=== PATIENT | female | born 1945 | race Caucasian/White ===

== ENCOUNTER 2017-08-06 12:40 | Emergency (ER) | payer MEDICARE, BC ==
--- OUTSIDE RECORDS SUMMARY | 2017-08-06 13:20 | XMS REPORT ---
:1945 External Reference #:[id number] Author Organization [facility] Address [address] [place] [address] Phone [phone] Care Team Providers Name Role Phone Antonietta Pradhan MD Primary Care Physician Unavailable Payers Type Date Identification Numbers Payment Provider Subscriber Medicare Primary Policy Number: [id number] Medicare-[facility] Jonathan Burgess PayID: [id number] [address] [place] [address] Commercial Policy Number: [id number] [facility] Jonathan Burgess PayID: [id number] [address] [place] [address] Medigap Part B Policy Number: [id number] Medicare-[facility] Mya Palma PayID: [id number] [address] [place] [address] Commercial PayID: [id number] Roseline Palma [address] [place] [address] Problems Description No Information Family History Date Family Member(s) Problem(s) Comments General Cancer General No Current Problems Mother Cancer Social History Type Date Description Comments Occupation Retired Cigarette Use Former Cigarette Smoker 1 Pack Daily x 35 yrs, quit age 57 Cigars Never Smoked Cigars Pipe Never Smoked A Pipe Smokeless Tobacco Never Used Smokeless Tobacco ETOH Use Currently rarely consumes alcohol Smoking Patient is a former smoker Allergies, Adverse Reactions, Alerts Date Description Reaction Status Severity Comments 07/24/2017 Amoxicillin Urticaria active 07/24/2017 Contrast Dye Urticaria active Medications Medication Date Status Form Strength Qnty SIG Indications Ordering Provider Levothyroxine / Active Tablets 150mcg Jander, Sodium 0000 Antonietta PATEL Simvastatin 00/ Active Tablets 10mg Jander, 0000 Antonietta PATEL Losartan / Active Tablets 25mg Take 3 Unknown Potassium 0000 Tablets By Mouth Every Day Glipizide ER / Active Tablets ER 10mg Take 1 Unknown 0000 24HR Tablet By Mouth Two Times Daily Metformin HCL / Active Tablets 500mg , Antonietta PATEL Lantus Solostar / Active Solution 100Unit/ML Administer Unknown 0000 Pen-Inject 18 Units Under The Skin At Bedtime Restasis / Active Emulsion 0.05% Instill 1 Unknown 0000 Drop In Each Eye Two Times Daily Aspirin 81 Low / Active Chewtabs 81mg daily , Dose 0000 Antonietta PATEL Vital Signs Date Vital Result Comment 07/24/2017 Weight 160.00 lb Weight in kg's 72.576 Height 64 inches 5'4" Height in cm's 162.6 cm BMI (Body Mass Index) 27.5 kg/m2 Results Description No Information Procedures Description No Information Encounters Type Date Location Provider CPT E/M Dx Office Visit 07/24/2017 [place] 04/21/07 [place], [address] H68.002 9:15a Plan of Care Future Appointment(s):07/25/2017 1:15 pm - Branden Aldana MA, CCC-A at [place],After 04/21/803 - [place] MDH68.002 Unspecified Eustachian salpingitis, left ear
[2017-08-06] MEDS ORDERED: NS 0.9% 1000 ML* 2,000 ML IV ONE (15:12)
[2017-08-06 16:17] LABS: ABS Basophils 0.1 10^3/ul (0-0.2); ABS Eosinophils 0.1 10^3/ul (0-0.6); ABS Lymphocytes 1.4 10^3/ul (1.0-4.8); ABS Monocytes 0.4 10^3/ul (0-0.8); ABS Nucleated RBC 0 10^3/ul; Eosinophil % 0.7 % (0-6); Hematocrit 42 % (35-47); Hemoglobin 13.9 g/dl (12.0-16.0); Mean Corpuscular HGB Conc 33 g/dl (31-36); Mean Corpuscular Hemoglobin 32 pg (27-31); Mean Corpuscular Volume 95 fL (80-97); Mean Platelet Volume 9.5 um3 (7.4-10.4); Nucleated Red Blood Cells % 0; Platelet Count 281 10^3/ul (150-450); Red Cell Distribution Width 14 % (10.5-15)
[2017-08-06 16:30] LABS: INR 0.94 (0.77-1.02)
[2017-08-06 16:34] LABS: EGFR Non-African American 44.1 (>60)
[2017-08-06 17:13] LABS: Urine Appearance Clear; Urine Blood 2+ (Negative); Urine Color Straw; Urine Ketones Trace (Negative); Urine Protein Negative (Negative); Urine Specific Gravity 1.006 (1.010-1.030); Urine Urobilinogen Negative (Negative)
--- NOTE | 2017-08-06 17:38 | RAD ---
INDICATION: Right lower quadrant pain. COMPARISON: Correlation is made with a prior CT of the abdomen and pelvis from August 04, 2017. TECHNIQUE: Multiple real-time images of the right lower quadrant were obtained using a graded compression technique. FINDINGS: No free intraperitoneal fluid or localized fluid collections are seen. The appendix was not visualized limiting the study. IMPRESSION: THE APPENDIX WAS NOT VISUALIZED LIMITING THE STUDY.
--- NOTE | 2017-08-06 17:43 | RAD ---
INDICATION: Right flank abdominal pain. COMPARISON: Comparison is made with a prior CT of the abdomen and pelvis from August 04, 2017. TECHNIQUE: Multiple real-time images of the kidneys were obtained. FINDINGS: The kidneys are normal in size shape and echogenicity. The right kidney measured 10.2 x 5.3 x 5.4 cm and the left kidney measured 10.3 x 5.9 x 5.3 cm. There is mild right hydronephrosis. There is a diminished right ureterovesical jet relative to the left side. There is a small left peripelvic cyst measuring 1.0 x 1.1 x 1.0 cm. There is also a small nonspecific echogenic focus in the lower pole of the left kidney measuring 0.5 x 0.5 x 0.5 cm. IMPRESSION: MILD RIGHT HYDRONEPHROSIS AND DIMINISHED RIGHT URETEROVESICAL JET SUSPICIOUS FOR A RIGHT URETERAL CALCULUS. CONSIDER CT IMAGING FOR FURTHER EVALUATION.
[2017-08-06] MEDS ORDERED: Ketorolac INJ* 30 MG/ML 1 ML VIAL IV ONE (18:12)
[2017-08-06] MEDS ORDERED: Tamsulosin CAP* 0.4 MG PO ONE (18:12)
--- NOTE | 2017-08-06 19:46 | ED ---
Tangela Stubbs Gabriel, scribed for Ozzy Avila MD on 08/06/17 at 1501 . Back Pain - HPI Summary HPI Summary: This patient is a 71 year old F presenting to [facility] with a chief complaint of right sided flank pain that began at 1030 this morning. The patient rates the pain 8/10 in severity. Symptoms alleviated by OTC pain medications. Patient reports nausea secondary to pain. Patient denies dysuria. Pt had a CT yesterday that showed 2 kidney stones. - History of Current Complaint Chief Complaint: EDFlankPain Stated Complaint: FLANK PAIN Time Seen by Provider: 08/06/17 14:53 Hx Obtained From: Patient Onset/Duration: Still Present Onset/Duration: Still Present Timing: Constant Severity Initially: Severe Severity Currently: Severe Pain Intensity: 8 Pain Scale Used: 0-10 Numeric Associated Signs And Symptoms: Positive: Other - right sided flank pain and nausea - Allergies/Home Medications Allergies/Adverse Reactions: Allergies Allergy/AdvReac Type Severity Reaction Status Date / Time amoxicillin Allergy Unknown Verified 08/06/17 16:[address] dye Allergy Unknown Uncoded 05/09/17 15:11 Reaction Details Home Medications: Home Medications Cyclosporine 0.05% OPHTH (NF) [Restasis 0.05% OPHTH] 0.05 % BOTH EYES BID [History Confirmed 08/06/17] Insulin GLARGINE(*) [Lantus(*)] 22 units SUBCUT DAILY 08/06/17 [History Confirmed 08/06/17] Levothyroxine TAB* [Synthroid TAB*] 75 mcg PO SUWE 08/06/17 [History Confirmed 08/06/17] Levothyroxine TAB* [Synthroid TAB*] 150 mcg PO MOTUTHFRSA 08/06/17 [History Confirmed 08/06/17] Losartan TAB* [Cozaar TAB*] 25 mg PO TID 08/06/17 [History Confirmed 08/06/17] Simvastatin TAB(NF) [Zocor(NF)] 10 mg PO DAILY 08/06/17 [History Confirmed 08/06] glipiZIDE [Glipizide ER] 10 mg PO BID 08/06/17 [History Confirmed 08/06/17] metFORMIN* [Glucophage 500 MG TAB *] 1,000 mg PO BID 08/06/17 [History Confirmed 08/06/17] PMH/Surg Hx/FS Hx/Imm Hx Endocrine/Hematology History: Denies: Hx Sickle Cell Disease, Hx Thyroid Disease Respiratory History: Denies: Hx Chronic Obstructive Pulmonary Disease (COPD), Hx Cystic Fibrosis History: Reports: Hx Kidney Stones Musculoskeletal History: Denies: Hx Osteoporosis Sensory History: Reports: Hx Contacts or Glasses Opthamlomology History: Reports: Hx Contacts or Glasses Neurological History: Denies: Hx Dementia - Surgical History Surgery Procedure, Year, and Place: THYRIODECTOMY. LEFT BREAST BX Infectious Disease History: No Infectious Disease History: Denies: Traveled Outside the [place] in Last 30 Days - Family History Known Family History: Positive: Diabetes Negative: Renal Disease, Respiratory Disease, Seizure Disorder - Social History Alcohol Use: Occasionally Substance Use Type: Reports: None Smoking Status (MU): Former Smoker Review of Systems Negative: Fever Positive: Nausea Positive: flank pain - right All Other Systems Reviewed And Are Negative: Yes Physical Exam - Summary Physical Exam Summary: General: well-appearing, no pain distress Skin: warm, color reflects adequate perfusion, dry Head: normal Eyes: EOMI, EDITH ENT: normal Neck: supple, nontender Respiratory: CTA, breath sounds present Cardiovascular: RRR Abdomen: soft, nontender Bowel: present Musculoskeletal: normal, strength/ROM intact Neurological: normal, sensory/motor intact, A&O x3 Psychological: affect/mood appropriate Triage Information Reviewed: Yes Vital Signs On Initial Exam: Initial Vitals Temp Pulse Resp BP Pulse Ox 98.3 F 84 20 155/79 97 08/06/17 12:53 08/06/17 12:53 08/06/17 12:53 08/06/17 12:53 08/06/17 12:53 Vital Signs Reviewed: Yes Diagnostics - Vital Signs Vital Signs Temp Pulse Resp BP Pulse Ox 08/06/17 14:08 98.3 F 82 20 152/74 98 08/06/17 12:53 98.3 F 84 20 155/79 97 - Laboratory Lab Results: Lab Results 08/06/17 08/06/17 08/06/17 Range/Units 15:24 15:24 15:24 WBC 12.0 H (3.5-10.8) 10^3/ul RBC 4.40 (4.0-5.4) 10^6/ul Hgb 13.9 (12.0-16.0) g/dl Hct 42 (35-47) % MCV 95 (80-97) fL MCH 32 H (27-31) pg MCHC 33 (31-36) g/dl RDW 14 (10.5-15) % Plt Count 281 (150-450) 10^3/ul MPV 9.5 (7.4-10.4) um3 Neut % (Auto) 83.1 H (38-83) % Lymph % (Auto) 12.0 L (25-47) % [place] % (Auto) 3.5 (0-7) % Eos % (Auto) 0.7 (0-6) % Baso % (Auto) 0.7 (0-2) % Absolute Neuts (auto) 10.0 H (1.5-7.7) 10^3/ul Absolute Lymphs (auto) 1.4 (1.0-4.8) 10^3/ul Absolute Monos (auto) 0.4 (0-0.8) 10^3/ul Absolute Eos (auto) 0.1 (0-0.6) 10^3/ul Absolute Basos (auto) 0.1 (0-0.2) 10^3/ul Absolute Nucleated RBC 0 10^3/ul Nucleated RBC % 0 INR (Anticoag Therapy) 0.94 (0.77-1.02) APTT 25.8 L (26.0-36.3) seconds Sodium 140 (139-145) mmol/L Potassium 4.2 (3.5-5.0) mmol/L Chloride 102 (101-111) mmol/L Carbon Dioxide 25 (22-32) mmol/L Anion Gap 13 H (2-11) mmol/L BUN 25 H (6-24) mg/dL Creatinine 1.21 H (0.51-0.95) mg/dL Est GFR ( Amer) 56.7 (>60) Est GFR (Non-Af Amer) 44.1 (>60) BUN/Creatinine Ratio 20.7 H (8-20) Glucose 151 H (70-100) mg/dL Lactic Acid (0.5-2.0) mmol/L Calcium 9.9 (8.6-10.3) mg/dL Total Bilirubin 0.40 (0.2-1.0) mg/dL AST 25 (13-39) U/L ALT 45 (7-52) U/L Alkaline Phosphatase 45 (34-104) U/L C-Reactive Protein 2.94 (< 5.00) mg/L Total Protein 7.2 (6.4-8.9) g/dL Albumin 4.5 (3.2-5.2) g/dL Globulin 2.7 (2-4) g/dL Albumin/Globulin Ratio 1.7 (1-3) Lipase 79 (11.0-82.0) U/L Urine Color Urine Appearance Urine pH (5-9) Ur Specific [place] (1.010-1.030) Urine Protein (Negative) Urine Ketones (Negative) Urine Blood (Negative) Urine Nitrate (Negative) Urine Bilirubin (Negative) Urine Urobilinogen (Negative) Ur Leukocyte Esterase (Negative) Urine WBC (Auto) (Absent) Urine RBC (Auto) (Absent) Ur Squamous Epith Cells (Absent) Urine Bacteria (Absent) Urine Glucose (Negative) 08/06/17 08/06/17 Range/Units 15:24 17:00 WBC (3.5-10.8) 10^3/ul RBC (4.0-5.4) 10^6/ul Hgb (12.0-16.0) g/dl Hct (35-47) % MCV (80-97) fL MCH (27-31) pg MCHC (31-36) g/dl RDW (10.5-15) % Plt Count (150-450) 10^3/ul MPV (7.4-10.4) um3 Neut % (Auto) (38-83) % Lymph % (Auto) (25-47) % [place] % (Auto) (0-7) % Eos % (Auto) (0-6) % Baso % (Auto) (0-2) % Absolute Neuts (auto) (1.5-7.7) 10^3/ul Absolute Lymphs (auto) (1.0-4.8) 10^3/ul Absolute Monos (auto) (0-0.8) 10^3/ul Absolute Eos (auto) (0-0.6) 10^3/ul Absolute Basos (auto) (0-0.2) 10^3/ul Absolute Nucleated RBC 10^3/ul Nucleated RBC % INR (Anticoag Therapy) (0.77-1.02) APTT (26.0-36.3) seconds Sodium (139-145) mmol/L Potassium (3.5-5.0) mmol/L Chloride (101-111) mmol/L Carbon Dioxide (22-32) mmol/L Anion Gap (2-11) mmol/L BUN (6-24) mg/dL Creatinine (0.51-0.95) mg/dL Est GFR ( Amer) (>60) Est GFR (Non-Af Amer) (>60) BUN/Creatinine Ratio (8-20) Glucose (70-100) mg/dL Lactic Acid 1.8 (0.5-2.0) mmol/L Calcium (8.6-10.3) mg/dL Total Bilirubin (0.2-1.0) mg/dL AST (13-39) U/L ALT (7-52) U/L Alkaline Phosphatase (34-104) U/L C-Reactive Protein (< 5.00) mg/L Total Protein (6.4-8.9) g/dL Albumin (3.2-5.2) g/dL Globulin (2-4) g/dL Albumin/Globulin Ratio (1-3) Lipase (11.0-82.0) U/L Urine Color Straw Urine Appearance Clear Urine pH 5.0 (5-9) Ur Specific [place] 1.006 L (1.010-1.030) Urine Protein Negative (Negative) Urine Ketones Trace A (Negative) Urine Blood 2+ A (Negative) Urine Nitrate Negative (Negative) Urine Bilirubin Negative (Negative) Urine Urobilinogen Negative (Negative) Ur Leukocyte Esterase Negative (Negative) Urine WBC (Auto) Trace(0-5/hpf) (Absent) Urine RBC (Auto) Trace(0-2/hpf) (Absent) Ur Squamous Epith Cells Present A (Absent) Urine Bacteria Absent (Absent) Urine Glucose 2+(150 mg/dl) A (Negative) Result Diagrams: 08/06/17 15:24 08/06/17 15:24 Lab Statement: Any lab studies that have been ordered have been reviewed, and results considered in the medical decision making process. - Additional Comments Diagnostic Additional Comments: ULTRASOUND RENAL COMPLETE Interpreted by radiologist IMPRESSION: MILD RIGHT HYDRONEPHROSIS AND DIMINISHED RIGHT URETEROVESICAL JET SUSPICIOUS FOR A RIGHT URETERAL CALCULUS. CONSIDER CT IMAGING FOR FURTHER EVALUATION. Dr. Avila has reviewed this report. ULTRASOUND APPENDIX Interpreted by radiologist. IMPRESSION: THE APPENDIX WAS NOT VISUALIZED LIMITING THE STUDY. Dr. Avila has reviewed this report. Back Pain Course/Dx - Course Course Of Treatment: DISCUSSED WITH DR CHACKO. US SHOWS RT HYDRONEPHROSIS AND DECREASED JETS ON THE RIGHT. PAIN IMPROVED IN ED WITH TORADOL. THE PLAN IS FLOMAX, IBUPROFEN AND NORCO PRN WITH UROLOGY F/U; RETURN TO ED IF WORSE. - Diagnoses Provider Diagnoses: Abdominal pain, right lateral, Right kidney stone Discharge - Sign-Out/Discharge Documenting (check all that apply): Discharge - Discharge Plan Condition: Stable Disposition: HOME Prescriptions: HYDROcodone/ACETAMIN 5-325 MG* [[place] 5-325 TAB*] 1 tab PO Q4H PRN #20 tab MDD 6 PRN Reason: Pain Tamsulosin CAP* [Flomax CAP*] 0.4 mg PO DAILY #5 cap Patient Education Materials: Kidney Stones (ED), Acute Abdominal Pain (ED) Referrals: Antonietta Pradhan MD [Primary Care Provider] - Zion Chacko MD [Medical Doctor] - Additional Instructions: FOLLOW UP WITH UROLOGY. CALL TOMORROW FOR THE APPOINTMENT. RETURN TO THE EMERGENCY DEPARTMENT FOR ANY WORSENING OF YOUR CONDITION; PAIN, FEVER, YOU FEEL ILL OR ANY QUESTIONS OR CONCERNS. - Billing Disposition and Condition Condition: STABLE Disposition: HOME The documentation as recorded by the Tangela sutton Gabriel accurately reflects the service I personally performed and the decisions made by me, Ozzy Avila MD.
[2017-08-06 20:10] VITALS: BP 160/90
== END 2017-08-06 20:10 | disposition home or self-care (01) ==
LOC: ED 12:40
DX: N13.2 Hydronephrosis with renal and ureteral calculous obstruction (principal); R10.31 Right lower quadrant pain; Z87.442 Personal history of urinary calculi; Z87.891 Personal history of nicotine dependence
CPT/HCPCS: 36415; 76705; 76775; 80053; 81003; 81015; 83605; 83690; 85025; 85610; 85730; 86140; 87086; 96360; 96374; 99283; J1885